=== PATIENT | male | born 1990 | race African-American/Black ===

== ENCOUNTER 2018-10-23 11:47 | Emergency (ER) | payer BC ==
[2018-10-23] MEDS ORDERED: Ibuprofen 800 MG TAB ONE (12:42)
== END 2018-10-23 12:50 | disposition home or self-care (01) ==
LOC: ERS 11:47
DX: S16.1XXA Strain of muscle, fascia and tendon at neck level, initial encounter (principal); V43.62XA Car passenger injured in collision with other type car in traffic accident, initial encounter
CPT/HCPCS: 99283

== ENCOUNTER 2018-12-27 22:26 | Emergency (ER) | payer BC ==
[2018-12-28] MEDS ORDERED: Dexamethasone 4 mg/ml Vial ONE (00:39)
--- NOTE | 2018-12-28 07:30 | RAD ---
XR Neck Soft Tissue History: [Pain. Emergency exam.] Comparison: None Findings: No radiopaque foreign object is seen projecting over the neck soft tissues. Prevertebral so ft tissue thickness is normal. Cervical spine alignment is normal. Impression: Normal exam
== END 2018-12-28 00:45 | disposition home or self-care (01) ==
LOC: ERS 22:26
DX: R07.0 Pain in throat (principal)
CPT/HCPCS: 70360; J1100

== ENCOUNTER 2019-08-10 17:27 | Emergency (ER) | payer BC ==
[2019-08-10 18:11] LABS: Bacteria/HPF None Seen HPF (None Seen); Bilirubin Negative (Negative); Blood, Urine Negative (Negative); Clarity Clear (Clear); Glucose, Urine (Dipstick) Normal (Negative); Leukocyte Negative Leu/uL (Negative); Nitrite Negative (Negative); Protein, Urine (Dipstick) 70 mg/dL (Neg-Trace); RBC/HPF 0-3 HPF (0-3); Squamous Epithelial 0-3 HPF (0-3); Urobilinogen Normal mg/dL (Less than 2); WBC/HPF 0-3 HPF (0-3)
== END 2019-08-10 19:10 | disposition home or self-care (01) ==
LOC: ERS 17:27
DX: R50.9 Fever, unspecified (principal); R05 Cough; R51 Headache; R09.81 Nasal congestion; M79.10 Myalgia, unspecified site; Z71.6 Tobacco abuse counseling
CPT/HCPCS: 81003; 81015; 87804; 99406

== ENCOUNTER 2020-09-17 14:45 | Emergency (ER) | payer BC | END 2020-09-17 16:28 | disposition home or self-care (01) | LOC: ERS 14:45 | DX: R25.2 Cramp and spasm (principal); V89.2XXA Person injured in unspecified motor-vehicle accident, traffic, initial encounter | CPT/HCPCS: 99283 ==

== ENCOUNTER 2020-10-02 15:02 | Emergency (ER) | payer BC, SELFPAY | END 2020-10-02 16:54 | disposition home or self-care (01) | LOC: ERS 15:02 | DX: S01.81XA Laceration without foreign body of other part of head, initial encounter (principal); M79.5 Residual foreign body in soft tissue; W25.XXXA Contact with sharp glass, initial encounter | CPT/HCPCS: 12011 ==

== ENCOUNTER 2021-07-22 18:25 | Emergency (ER) | payer SELFPAY | END 2021-07-22 19:53 | disposition left against medical advice (07) | LOC: ERS 18:25 | DX: Z53.21 Procedure and treatment not carried out due to patient leaving prior to being seen by health care provider (principal) ==

== ENCOUNTER 2021-10-05 14:29 | Emergency (ER) | payer SELFPAY | END 2021-10-05 17:27 | disposition home or self-care (01) | LOC: ERS 14:29 | DX: S56.911A Strain of unspecified muscles, fascia and tendons at forearm level, right arm, initial encounter (principal); X50.1XXA Overexertion from prolonged static or awkward postures, initial encounter | CPT/HCPCS: 99283 ==

== ENCOUNTER 2024-08-22 02:01 | Emergency (ER) | payer SELFPAY | END 2024-08-22 03:10 | disposition home or self-care (01) | LOC: ERS 02:01 | DX: B34.9 Viral infection, unspecified (principal) | CPT/HCPCS: 87428; 99283 ==